=== PATIENT | male | born 1960 | race Caucasian/White ===

== ENCOUNTER 2018-06-22 07:17 | Day surgery (SDC) | payer OTHER ==
[2018-06-22] MEDS ORDERED: PROPOFOL INJ 200 MG/20 ML VIAL IV ONE (07:25)
[2018-06-22 09:00] VITALS: BP 130/71
--- NOTE | 2018-06-22 12:34 | Operative Report ---
Operative Report DATE OF SURGERY: 06/22/18 Operative Report: The risks benefits and alternatives of the procedure explained to the patient in detail and informed consent is obtained.A GIF Olympus video scope was inserted into the patient's mouth and hypopharynx, the esophagus is identified intubated and insufflated, the scope was then advanced through the esophagus stomach and duodenum, retroflexion maneuver is done, the esophagus stomach and first and second portions of the duodenum examined. 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 Irby's esophagus status post radiofrequency ablation OPERATION: EGD with radio frequency ablation. EGD with biopsy SURGEON: VINEET VALE ANESTHESIA: LMAC TISSUE REMOVED OR ALTERED: As noted above. COMPLICATIONS: None. ESTIMATED BLOOD LOSS: None. INTRAOPERATIVE FINDINGS: As noted above. PROCEDURE: Patient tolerated the procedure well. No immediate postprocedure complications are noted. Patient discharged in good condition. Discharge date 06/22/2018. Discharge diet: Regular. Discharge activity: Regular. 2-3-week follow-up to discuss findings. Patient is instructed to call the office or proceed to the emergency room should there be any further problems or questions. Wait on the pathology.
== END 2018-06-22 09:10 | disposition home or self-care (01) ==
LOC: END 07:17
PROVIDERS: ATTEND Internal Medicine Gastroenterology
DX: K22.719 Barrett's esophagus with dysplasia, unspecified (principal); I10 Essential (primary) hypertension; E78.5 Hyperlipidemia, unspecified; Z79.899 Other long term (current) drug therapy; K29.50 Unspecified chronic gastritis without bleeding; K21.9 Gastro-esophageal reflux disease without esophagitis; Z88.8 Allergy status to other drugs, medicaments and biological substances; E07.9 Disorder of thyroid, unspecified
CPT/HCPCS: 43239; 43270; 731; 88305; 88342; J2704